=== PATIENT | male | born 1945 | race Caucasian/White ===

== ENCOUNTER 2016-05-22 11:16 | Inpatient (IN) | payer OTHER ==
[~2016-05-22] VITALS: Ht 167.6 cm; Wt 116.6 kg
[~2016-05-22 11:16] MED LIST: ADVAIR 500/501 DISK; AMBIEN10 MG; AMBIEN10 MG PO; AMLODIPINE BESY10 MG PO; AMLODIPINE BESYL5 MG PO; ASPIRIN325 MG PO; ATORVASTATIN CA10 MG PO; AVAPRO300 MG PO; AZELASTINE137 MCG/0. BOTH NARES; BUSPAR15 MG PO; CYANOCOBALAM1000 MCG PO; CYMBALTA60 MG PO; DEPO-TESTOS200 MG/ML IM; DULERA 100 MCG/13 GM IH; DULOXETINE HCL60 MG PO; EFFEXOR XR150 MG PO; FENOFIBRATE134 M1 PO; FENOFIBRATE160 M1 PO; FERROUS SULFAT325 MG PO; FISH OIL CONC1 EACH; FLOMAX0.4 MG PO; FLONASE16 G1 BOTH NARES; GEODON80 MG; GLIMEPIRIDE4 MG PO; HUMALOG100 UNIT/2 SC; HYDROCHLOROTHIA25 MG PO; IBUPROFEN200 M1 PO; INDERAL LA160 MG PO; K-DUR10 MEQ PO; KLONOPIN1 MG PO; KRILL OIL500 MG; LAMOTRIGINE200 M1 PO; LAMOTRIGINE200 MG; LAMOTRIGINE200 MG PO; LANTUS (UNITS)1 UNIT; LANTUS 3 M100 UNITS1 SC; LASIX40 MG PO; LISINOPRIL20 MG PO; LISINOPRIL40 MG PO; LO-DOSE ASPIRIN81 M2 PO; MELATONIN10 M1; MIRTAZAPINE30 MG PO; MIRTAZAPINE45 MG PO; NASONEX17 GM BOTH NARES; NIASPAN500 MG; OMEPRAZOLE20 M2 PO; PRILOSEC20 MG PO; PRINIVIL20 MG PO; PROPRANOLOL HC160 MG PO; PROVENTIL,2.5 MG/3 M IH; ROZEREM8 MG PO; SEROQUEL400 MG PO; SINGULAIR10 MG PO; SYNTHROID88 MCG PO; TESTONE CI200 MG/1 M IM; TESTOSTERO200 MG/12; TRADJENTA5 MG PO; TRAMADOL HCL50 MG PO; VALISONE TP; VENLAFAXINE HC150 M1 PO; VENLAFAXINE HCL75 MG PO; VENTOLIN HFA18 GM; VENTOLIN HFA18 GM IH; VERAPAMIL HCL240 M1
[2016-05-22 12:21] LABS: HEMATOCRIT 30.6 % (38.0-50.0); MCH 30.3 PG (29.0-34.0); MCV 89.2 FL (86-99); MEAN PLAT.VOLUME 9.2 uM^3 (9.0-12.4); PLATELET COUNT 304 K/uL (156-360); RBC DIS.WIDTH-CV 11.9 % (11.8-14.6); RBC DIS.WIDTH-SD 38.7 % (39-53); RED BLOOD COUNT 3.43 M/uL (4.00-5.50); WHITE BLOOD COUNT 13.6 K/uL (4.1-10.2)
[2016-05-22 12:29] LABS: CHLORIDE 103 mEq/L (99-109); POTASSIUM 4.9 mEq/L (3.7-5.4); SODIUM 135 mEq/L (136-147)
[2016-05-22 12:31] LABS: GLUCOSE 199 mg/dL (70-99)
[2016-05-22 12:32] LABS: ANION GAP 10 MEQ/L (2-14)
[2016-05-22 12:34] LABS: GFR ESTIMATE (CALCULATED) > 59 mL/min/
[2016-05-22 12:35] LABS: UREA NITROGEN (BUN) 24 mg/dL (9-23)
[2016-05-22] MEDS ORDERED: NORVASC10 MG PO (14:18)
[2016-05-22] MEDS ORDERED: BUSPAR15 MG PO (14:20)
[2016-05-22] MEDS ORDERED: [UNRECOGNIZED DRUG - OTHER] TP (14:20)
[2016-05-22] MEDS ORDERED: LAMICTAL25 MG PO (14:23)
[2016-05-22] MEDS ORDERED: REMERON30 M2 PO (14:24)
[2016-05-22 14:39] LABS: TROP-I INTERPRETATION NEGATIVE; TROPONIN-I < 0.01 ng/mL (0.0-0.30)
[2016-05-22 16:57] VITALS: BP 142/76
[2016-05-22 17:19] LABS: POINT-OF-CARE METER ID UU13113698
[2016-05-22 18:10] LABS: HEMATOCRIT 31.1 % (38.0-50.0); MCV 90.1 FL (86-99)
[2016-05-22 19:20] VITALS: BP 144/70
[2016-05-22 22:28] LABS: POINT-OF-CARE METER ID UU13113698
[2016-05-22 23:33] VITALS: BP 177/78
[2016-05-23 00:53] LABS: HEMATOCRIT 23.1 % (38.0-50.0); MCV 87.8 FL (86-99)
[2016-05-23 02:05] VITALS: BP 147/66
[2016-05-23 02:26] LABS: POINT-OF-CARE METER ID UU13113698
[2016-05-23 04:20] VITALS: BP 139/67
[2016-05-23 09:14] VITALS: BP 162/70
[2016-05-23 09:18] LABS: HEMATOCRIT 26.8 % (38.0-50.0); MCHC 33.6 G/DL (30.0-36.0); MCV 89.3 FL (86-99); RBC DIS.WIDTH-CV 12.5 % (11.8-14.6)
[2016-05-23 09:28] LABS: ANION GAP 7 MEQ/L (2-14); CHLORIDE 105 MEQ/L (99-109); GFR ESTIMATE (CALCULATED) > 59 mL/min/; SAMPLE HEMOLYSIS CHECK 0; SAMPLE ICTERIC CHECK 0; SAMPLE LIPEMIA CHECK 0; SODIUM 139 MEQ/L (136-147); UREA NITROGEN (BUN) 17 mg/dL (9-23)
[2016-05-23 09:38] LABS: WHITE BLOOD COUNT 8.6 K/uL (4.1-10.2)
[2016-05-23 09:41] LABS: GLUCOSE 92 mg/dL (70-99); POTASSIUM 3.7 MEQ/L (3.7-5.4)
[2016-05-23 09:49] LABS: MEAN PLAT.VOLUME 9.3 uM^3 (9.0-12.4); PLAT.SUFFICIENCY ADEQUATE
[2016-05-23 09:53] LABS: POINT-OF-CARE METER ID UU13113698
[2016-05-23 09:54] LABS: PLATELET COUNT 188 K/uL (156-360)
[2016-05-23 11:13] LABS: C DIFF TOXIN NEGATIVE (NEGATIVE)
[2016-05-23 11:14] LABS: HEMATOCRIT 27.6 % (38.0-50.0)
[2016-05-23 11:15] LABS: PROBE CHECK PASS; SPECIMEN PROCESSING CONTROL PASS
[2016-05-23 12:14] LABS: POINT-OF-CARE METER ID UU13113698; POINT-OF-CARE USER ID 606021404
[2016-05-23 12:28] VITALS: BP 151/68
[2016-05-23 16:27] LABS: HEMATOCRIT 27.9 % (38.0-50.0); MCV 87.7 FL (86-99)
[2016-05-23 16:30] VITALS: BP 162/72
[2016-05-23 17:03] LABS: POINT-OF-CARE METER ID UU13113698; POINT-OF-CARE USER ID 606021404
[2016-05-23 20:40] VITALS: BP 173/75
[2016-05-23 21:46] LABS: POINT-OF-CARE METER ID UU13113698
[2016-05-23 22:30] LABS: HEMATOCRIT 26.3 % (38.0-50.0); MCV 88.6 FL (86-99)
[2016-05-24 00:51] VITALS: BP 153/68
[2016-05-24 04:38] VITALS: BP 160/72
[2016-05-24 06:07] LABS: EOSINOPHIL (%) 3.3 % (0-5); EOSINOPHIL COUNT 0.2 K/uL (0-0.3); HEMATOCRIT 27.3 % (38.0-50.0); IMMATURE GRANULOCYTE (%) 0.4 % (0.0-0.7); INSTRUMENT ABS NEUTROPHIL CT 4.4 K/uL; LYMPHOCYTE COUNT 1.9 K/uL (1.0-2.8); MCH 30.5 PG (29.0-34.0); MCHC 34.1 G/DL (30.0-36.0); MCV 89.5 FL (86-99); MONOCYTE (%) 10.4 % (3-12); MONOCYTE COUNT 0.8 K/uL (0-0.8); NEUTROPHIL (%) 60.1 % (45-76); NEUTROPHIL COUNT 4.4 K/uL (1.8-6.4); PLATELET COUNT 204 K/uL (156-360); RBC DIS.WIDTH-CV 12.5 % (11.8-14.6); RBC DIS.WIDTH-SD 40.2 % (39-53); RED BLOOD COUNT 3.05 M/uL (4.00-5.50); WHITE BLOOD COUNT 7.4 K/uL (4.1-10.2)
[2016-05-24 06:39] LABS: ANION GAP 8 MEQ/L (2-14); CHLORIDE 106 MEQ/L (99-109); GFR ESTIMATE (CALCULATED) > 59 mL/min/; GLUCOSE 109 mg/dL (70-99); POTASSIUM 4.1 MEQ/L (3.7-5.4); SAMPLE HEMOLYSIS CHECK 0; SAMPLE ICTERIC CHECK 0; SAMPLE LIPEMIA CHECK 0; SODIUM 142 MEQ/L (136-147); UREA NITROGEN (BUN) 12 mg/dL (9-23)
[2016-05-24 07:46] VITALS: BP 162/72
[2016-05-24 08:21] LABS: POINT-OF-CARE METER ID UU13113698
[2016-05-24] MEDS ORDERED: PANTOPRAZOLE SO40 MG PO (10:23)
== END 2016-05-24 11:23 | disposition home or self-care (01) | DRG 378 ==
LOC: EME 11:16 → 4SOUTH 14:59 → EDOF 14:59 → 4SOUTH 16:50
PROVIDERS: Hospitalist; Internal Medicine; Internal Medicine Gastroenterology
PROC: 5A09357 Assistance with Respiratory Ventilation, Less than 24 Consecutive Hours, Continuous Positive Airway Pressure (ICD-10-PCS; principal; 2016-05-22)
PROC: 30233N1 Transfusion of Nonautologous Red Blood Cells into Peripheral Vein, Percutaneous Approach (ICD-10-PCS; 2016-05-23)
PROC: 0DB68ZX Excision of Stomach, Via Natural or Artificial Opening Endoscopic, Diagnostic (ICD-10-PCS; 2016-05-23)
DX: K26.4 Chronic or unspecified duodenal ulcer with hemorrhage (principal); D62 Acute posthemorrhagic anemia; Z68.41 Body mass index [BMI] 40.0-44.9, adult; K29.70 Gastritis, unspecified, without bleeding; K44.9 Diaphragmatic hernia without obstruction or gangrene; I10 Essential (primary) hypertension; E11.9 Type 2 diabetes mellitus without complications; E78.5 Hyperlipidemia, unspecified; G47.33 Obstructive sleep apnea (adult) (pediatric); J45.909 Unspecified asthma, uncomplicated; K21.9 Gastro-esophageal reflux disease without esophagitis; F31.9 Bipolar disorder, unspecified; E66.01 Morbid (severe) obesity due to excess calories; Z95.810 Presence of automatic (implantable) cardiac defibrillator; Z85.09 Personal history of malignant neoplasm of other digestive organs; Z79.82 Long term (current) use of aspirin; Z79.4 Long term (current) use of insulin
CPT/HCPCS: 74177; 80048; 82948; 84484; 85014; 85018; 85025; 85027; 86850; 86900; 86901; 86920; 87077; 87493; 88305; 88342 TC; 93005; 94640; 94640 76; 94660; 99202; 99281; 99284; C9113; J1815; J1940; J7030; P9040

== ENCOUNTER → 2016-11-29 | Outpatient (CLI) | payer OTHER ==
[~2016-11-29] MED LIST changes: +LAMICTAL25 MG PO; +NORVASC10 MG PO; +PANTOPRAZOLE SO40 MG PO; +REMERON30 M2 PO; +[UNRECOGNIZED DRUG - OTHER] TP
== END | disposition home or self-care (01) ==
DX: R26.2 Difficulty in walking, not elsewhere classified (principal); M25.562 Pain in left knee; M25.561 Pain in right knee; M25.662 Stiffness of left knee, not elsewhere classified; M25.661 Stiffness of right knee, not elsewhere classified; M17.0 Bilateral primary osteoarthritis of knee; M62.81 Muscle weakness (generalized); Z74.1 Need for assistance with personal care
CPT/HCPCS: 97161 GP; 97165 GO; 97530 GP; 97537 GO; G8978 GP; G8979 GP; G8980 GP; G8987 GO; G8988 GO; G8989 GO

== ENCOUNTER 2016-12-29 09:04 | Inpatient (IN) | payer OTHER ==
[~2016-12-29] VITALS: Ht 167.6 cm; Wt 122.5 kg
[~2016-12-29 09:04] MED LIST changes: +ASCORBIC ACID100 MG PO; +ELIQUIS2.5 MG PO; +ENDOCET 5-3251 EACH PO; +LORTAB 5-325 M1 EACH PO; +OXYCONTIN10 MG PO; +PROTONIX40 MG PO; +SODIUM CHLORIDE1 G1 PO; +TENORMIN50 MG PO; +VALERIAN ROOT PO; +VITAMIN D31000 UNIT PO; +ZESTRIL40 MG PO
[2016-12-29] MEDS ORDERED: ZOFRAN4 MG PO (16:35)
[2016-12-29] MEDS ORDERED: SENNA S TABLET1 EACH PO (16:37)
[2016-12-29] MEDS ORDERED: PRAVACHOL40 MG PO (16:38)
[2016-12-29] MEDS ORDERED: CELEBREX200 MG PO (16:39)
[2016-12-29] MEDS ORDERED: PERCOCET 5/31 TABLET PO (16:41)
[2016-12-29 19:54] VITALS: BP 161/67
[2016-12-29 21:23] LABS: POINT-OF-CARE METER ID UU14174215
[2016-12-30 05:32] VITALS: BP 116/56
[2016-12-30 05:32] LABS: HEMATOCRIT 23.3 % (38.0-50.0); MCH 30.7 PG (29.0-34.0); MCHC 34.3 G/DL (30.0-36.0); MCV 89.3 FL (86-99); MEAN PLAT.VOLUME 9.2 uM^3 (9.0-12.4); RBC DIS.WIDTH-CV 12.2 % (11.8-14.6); RBC DIS.WIDTH-SD 39.8 % (39-53); WHITE BLOOD COUNT 10.2 K/uL (4.1-10.2)
[2016-12-30 06:08] LABS: PLATELET COUNT 146 K/uL (156-360); RED BLOOD COUNT 2.61 M/uL (4.00-5.50)
[2016-12-30 06:39] LABS: ALKALINE PHOSPHATASE 47 IU/L (3-129); CHLORIDE 95 MEQ/L (99-109); GFR ESTIMATE (CALCULATED) > 59 mL/min/; POTASSIUM 3.8 MEQ/L (3.7-5.4); SAMPLE HEMOLYSIS CHECK 0; SAMPLE ICTERIC CHECK 0; SODIUM 130 MEQ/L (136-147); TOTAL BILIRUBIN 0.7 MG/DL (0.0-1.0); UREA NITROGEN (BUN) 16 mg/dL (9-23)
[2016-12-30 06:40] LABS: ANION GAP 7 MEQ/L (2-14); GLUCOSE 87 mg/dL (70-99); SAMPLE LIPEMIA CHECK 0
[2016-12-30 07:09] LABS: POINT-OF-CARE METER ID UU14174215; POINT-OF-CARE USER ID ENVGAF
[2016-12-30 11:39] LABS: POINT-OF-CARE METER ID UU14174215; POINT-OF-CARE USER ID ENVGAF
[2016-12-30 15:24] VITALS: BP 131/58
[2016-12-30 16:19] LABS: POINT-OF-CARE METER ID UU14174215; POINT-OF-CARE USER ID ENVGAF
[2016-12-30 20:59] LABS: POINT-OF-CARE METER ID UU13113720
[2016-12-31 05:00] VITALS: BP 129/62
[2016-12-31 07:02] LABS: HEMATOCRIT 23.7 % (38.0-50.0); MCH 30.9 PG (29.0-34.0); MCHC 34.2 G/DL (30.0-36.0); MCV 90.5 FL (86-99); MEAN PLAT.VOLUME 9.3 uM^3 (9.0-12.4); PLATELET COUNT 181 K/uL (156-360); RBC DIS.WIDTH-CV 12.4 % (11.8-14.6); RBC DIS.WIDTH-SD 40.3 % (39-53); RED BLOOD COUNT 2.62 M/uL (4.00-5.50); WHITE BLOOD COUNT 9.2 K/uL (4.1-10.2)
[2016-12-31 07:36] LABS: ANION GAP 8 MEQ/L (2-14); CHLORIDE 96 MEQ/L (99-109); GFR ESTIMATE (CALCULATED) > 59 mL/min/; GLUCOSE 88 mg/dL (70-99); POTASSIUM 4.5 MEQ/L (3.7-5.4); SAMPLE HEMOLYSIS CHECK 0; SAMPLE ICTERIC CHECK 0; SAMPLE LIPEMIA CHECK 0; SODIUM 133 MEQ/L (136-147); UREA NITROGEN (BUN) 15 mg/dL (9-23)
[2016-12-31 07:57] LABS: POINT-OF-CARE METER ID UU14174215; POINT-OF-CARE USER ID AHSSSJB31
[2016-12-31 11:50] LABS: POINT-OF-CARE METER ID UU13113720; POINT-OF-CARE USER ID AHSSSJB31
[2016-12-31 15:37] VITALS: BP 141/64
[2016-12-31 16:27] LABS: POINT-OF-CARE METER ID UU14174215; POINT-OF-CARE USER ID 610211320
[2016-12-31 21:29] LABS: POINT-OF-CARE METER ID UU14174215
[2017-01-01 05:51] LABS: HEMATOCRIT 23.3 % (38.0-50.0); MCH 30.4 PG (29.0-34.0); MCHC 33.9 G/DL (30.0-36.0); MCV 89.6 FL (86-99); NRBC (%) 0.2 /100 WBC (0-0); PLATELET COUNT 217 K/uL (156-360); RBC DIS.WIDTH-CV 12.8 % (11.8-14.6); RBC DIS.WIDTH-SD 41.3 % (39-53); WHITE BLOOD COUNT 8.8 K/uL (4.1-10.2)
[2017-01-01 05:58] VITALS: BP 136/63
[2017-01-01 06:56] LABS: ANION GAP 9 MEQ/L (2-14); CHLORIDE 97 MEQ/L (99-109); GFR ESTIMATE (CALCULATED) > 59 mL/min/; GLUCOSE 107 mg/dL (70-99); POTASSIUM 4.5 MEQ/L (3.7-5.4); SAMPLE HEMOLYSIS CHECK 0; SAMPLE ICTERIC CHECK 0; SAMPLE LIPEMIA CHECK 0; SODIUM 135 MEQ/L (136-147); UREA NITROGEN (BUN) 15 mg/dL (9-23)
[2017-01-01 07:30] LABS: POINT-OF-CARE METER ID UU13113720; POINT-OF-CARE USER ID AHSSSJB31
[2017-01-01 11:37] LABS: POINT-OF-CARE METER ID UU13113720; POINT-OF-CARE USER ID AHSSSJB31
[2017-01-01 15:37] LABS: POINT-OF-CARE METER ID UU13113720; POINT-OF-CARE USER ID 610211320
[2017-01-01 15:49] VITALS: BP 132/60
[2017-01-01 21:04] LABS: POINT-OF-CARE METER ID UU13113720; POINT-OF-CARE USER ID 610211320
[2017-01-02 05:26] VITALS: BP 109/52
[2017-01-02 05:52] LABS: HEMATOCRIT 24.1 % (38.0-50.0); MCH 29.9 PG (29.0-34.0); MCHC 32.8 G/DL (30.0-36.0); MCV 91.3 FL (86-99); MEAN PLAT.VOLUME 8.8 uM^3 (9.0-12.4); NRBC (%) 0.3 /100 WBC (0-0); PLATELET COUNT 246 K/uL (156-360); RBC DIS.WIDTH-CV 12.9 % (11.8-14.6); RBC DIS.WIDTH-SD 41.7 % (39-53); RED BLOOD COUNT 2.64 M/uL (4.00-5.50); WHITE BLOOD COUNT 9.7 K/uL (4.1-10.2)
[2017-01-02 06:21] LABS: ANION GAP 9 MEQ/L (2-14); CHLORIDE 99 MEQ/L (99-109); GFR ESTIMATE (CALCULATED) > 59 mL/min/; GLUCOSE 98 mg/dL (70-99); POTASSIUM 4.1 MEQ/L (3.7-5.4); SAMPLE HEMOLYSIS CHECK 0; SAMPLE ICTERIC CHECK 0; SAMPLE LIPEMIA CHECK 0; SODIUM 135 MEQ/L (136-147); UREA NITROGEN (BUN) 16 mg/dL (9-23)
[2017-01-02 07:32] LABS: POINT-OF-CARE METER ID UU13113720; POINT-OF-CARE USER ID AHSSSJB31
[2017-01-02 11:47] LABS: POINT-OF-CARE METER ID UU13113720; POINT-OF-CARE USER ID AHSSSJB31
[2017-01-02 14:37] VITALS: BP 139/62
[2017-01-02 14:50] VITALS: BP 164/73
[2017-01-02 15:45] VITALS: BP 141/61
[2017-01-02 16:24] LABS: POINT-OF-CARE METER ID UU13113720
[2017-01-02 16:45] VITALS: BP 148/65
[2017-01-02 17:40] VITALS: BP 163/69
[2017-01-02 21:07] LABS: POINT-OF-CARE METER ID UU13113720
[2017-01-02] MEDS ORDERED: SODIUM CHLORIDE1 G1 PO (21:32)
[2017-01-02] MEDS ORDERED: Salonpas 4% Patch TD (21:32)
[2017-01-02] MEDS ORDERED: POLYETHYLENE GL17 GM PO (21:32)
[2017-01-02] MEDS ORDERED: FERROUS SULFAT325 MG PO (21:32)
[2017-01-03 05:49] VITALS: BP 139/66
[2017-01-03 06:31] LABS: HEMATOCRIT 27.4 % (38.0-50.0); MCH 29.5 PG (29.0-34.0); MCHC 32.5 G/DL (30.0-36.0); MCV 90.7 FL (86-99); MEAN PLAT.VOLUME 8.6 uM^3 (9.0-12.4); NRBC (%) 0.3 /100 WBC (0-0); PLATELET COUNT 270 K/uL (156-360); RBC DIS.WIDTH-CV 13.2 % (11.8-14.6); RBC DIS.WIDTH-SD 42.3 % (39-53); RED BLOOD COUNT 3.02 M/uL (4.00-5.50); WHITE BLOOD COUNT 10.8 K/uL (4.1-10.2)
[2017-01-03 07:02] LABS: ANION GAP 7 MEQ/L (2-14); CHLORIDE 100 MEQ/L (99-109); GFR ESTIMATE (CALCULATED) > 59 mL/min/; GLUCOSE 90 mg/dL (70-99); POTASSIUM 4.6 MEQ/L (3.7-5.4); SAMPLE HEMOLYSIS CHECK 0; SAMPLE ICTERIC CHECK 0; SAMPLE LIPEMIA CHECK 0; SODIUM 136 MEQ/L (136-147); UREA NITROGEN (BUN) 15 mg/dL (9-23)
[2017-01-03 07:07] LABS: POINT-OF-CARE METER ID UU14174215; POINT-OF-CARE USER ID ENVGAF
[2017-01-03 11:40] LABS: POINT-OF-CARE METER ID UU14174215; POINT-OF-CARE USER ID AHSSSJB31
[2017-01-03 12:19] LABS: POINT-OF-CARE METER ID UU14174215; POINT-OF-CARE USER ID ENVGAF
[2017-01-03] MEDS ORDERED: ZOFRAN ODT4 MG PO (13:14)
== END 2017-01-03 14:14 | disposition home health service (06) | DRG 560 ==
LOC: 3WEST 09:04
PROVIDERS: Internal Medicine Nephrology; Physical Medicine & Rehabilitation Pain Medicine
PROC: F07M0ZZ Range of Motion and Joint Mobility Treatment of Musculoskeletal System - Whole Body (ICD-10-PCS; principal; 2016-12-29)
DX: Z47.1 Aftercare following joint replacement surgery (principal); M62.81 Muscle weakness (generalized); Z96.653 Presence of artificial knee joint, bilateral; D62 Acute posthemorrhagic anemia; E78.00 Pure hypercholesterolemia, unspecified; J45.909 Unspecified asthma, uncomplicated; M06.9 Rheumatoid arthritis, unspecified; G47.33 Obstructive sleep apnea (adult) (pediatric); D72.829 Elevated white blood cell count, unspecified; E11.9 Type 2 diabetes mellitus without complications; E87.1 Hypo-osmolality and hyponatremia; I10 Essential (primary) hypertension; M79.7 Fibromyalgia; N40.0 Benign prostatic hyperplasia without lower urinary tract symptoms; G89.18 Other acute postprocedural pain; Z90.49 Acquired absence of other specified parts of digestive tract; Z82.5 Family history of asthma and other chronic lower respiratory diseases; Z82.61 Family history of arthritis; Z82.49 Family history of ischemic heart disease and other diseases of the circulatory system; Z85.038 Personal history of other malignant neoplasm of large intestine; Z87.11 Personal history of peptic ulcer disease; Z95.810 Presence of automatic (implantable) cardiac defibrillator
CPT/HCPCS: 80053; 80069; 82948; 83935; 84300; 84443; 85027; 86850; 86900; 86901; 86920; 97110 GO; 97530 GP; J1815; P9016

== ENCOUNTER 2017-06-22 07:25 | Day surgery (SDC) | payer OTHER ==
[~2017-06-22] VITALS: Ht 167.6 cm; Wt 121.1 kg
[~2017-06-22 07:25] MED LIST changes: +CELEBREX200 MG PO; +ENDOCET 10-3251 EACH PO; +LAMICTAL200 MG PO; +NEURONTIN300 MG PO; +OMEPRAZOLE40 M1 PO; +PERCOCET 5/31 TABLET PO; +POLYETHYLENE GL17 GM PO; +PRAVACHOL40 MG PO; +QUESTRAN LIGHT210 GM PO; +SENNA S TABLET1 EACH PO; +SEROQUEL300 MG PO; +Salonpas 4% Patch TD; +ZOFRAN ODT4 MG PO; +ZOFRAN4 MG PO
== END 2017-06-22 09:20 | disposition home or self-care (01) ==
LOC: PAIN 07:25 → SDC 08:00 → PAIN 08:00
PROVIDERS: Anesthesiology Pain Medicine
DX: M47.812 Spondylosis without myelopathy or radiculopathy, cervical region (principal); M47.816 Spondylosis without myelopathy or radiculopathy, lumbar region; E11.40 Type 2 diabetes mellitus with diabetic neuropathy, unspecified; I11.0 Hypertensive heart disease with heart failure; I50.30 Unspecified diastolic (congestive) heart failure; K21.9 Gastro-esophageal reflux disease without esophagitis; E78.5 Hyperlipidemia, unspecified; E66.01 Morbid (severe) obesity due to excess calories; Z68.41 Body mass index [BMI] 40.0-44.9, adult; G47.30 Sleep apnea, unspecified; E03.9 Hypothyroidism, unspecified; Z79.82 Long term (current) use of aspirin; Z79.4 Long term (current) use of insulin; Z79.891 Long term (current) use of opiate analgesic; Z95.810 Presence of automatic (implantable) cardiac defibrillator
CPT/HCPCS: 82948; J1030; J2250; S0020

== ENCOUNTER 2017-07-06 07:21 | Day surgery (SDC) | payer OTHER ==
[~2017-07-06] VITALS: Ht 167.6 cm; Wt 122.0 kg
== END 2017-07-06 09:22 | disposition home or self-care (01) ==
LOC: PAIN 07:21 → SDC 08:15 → PAIN 08:15
PROVIDERS: Anesthesiology Pain Medicine
DX: M47.812 Spondylosis without myelopathy or radiculopathy, cervical region (principal); F31.64 Bipolar disorder, current episode mixed, severe, with psychotic features; M19.90 Unspecified osteoarthritis, unspecified site; E11.40 Type 2 diabetes mellitus with diabetic neuropathy, unspecified; I11.0 Hypertensive heart disease with heart failure; I50.30 Unspecified diastolic (congestive) heart failure; I25.10 Atherosclerotic heart disease of native coronary artery without angina pectoris; E66.01 Morbid (severe) obesity due to excess calories; Z68.42 Body mass index [BMI] 45.0-49.9, adult; Z79.4 Long term (current) use of insulin; Z91.048 Other nonmedicinal substance allergy status
CPT/HCPCS: 82948; J1030; J2250; S0020

== ENCOUNTER 2017-09-04 07:55 | Day surgery (SDC) | payer OTHER ==
[~2017-09-04] VITALS: Ht 167.6 cm; Wt 122.0 kg
[2017-09-04] MEDS ORDERED: CYMBALTA60 MG PO (08:12)
== END 2017-09-04 09:50 | disposition home or self-care (01) ==
LOC: PAIN 07:55 → SDC 08:30 → PAIN 09:50
PROVIDERS: Anesthesiology Pain Medicine
PROC: BR141ZZ Fluoroscopy of Cervical Facet Joint(s) using Low Osmolar Contrast (ICD-10-PCS; principal; 2017-09-04)
PROC: 3E0T3TZ Introduction of Destructive Agent into Peripheral Nerves and Plexi, Percutaneous Approach (ICD-10-PCS; principal; 2017-09-04)
DX: M47.812 Spondylosis without myelopathy or radiculopathy, cervical region (principal); M50.30 Other cervical disc degeneration, unspecified cervical region; I11.0 Hypertensive heart disease with heart failure; I50.30 Unspecified diastolic (congestive) heart failure; G47.30 Sleep apnea, unspecified; Z95.810 Presence of automatic (implantable) cardiac defibrillator; I25.10 Atherosclerotic heart disease of native coronary artery without angina pectoris; E11.65 Type 2 diabetes mellitus with hyperglycemia
CPT/HCPCS: 82948; J1030; J2250; S0020

== ENCOUNTER 2017-09-12 07:47 | Day surgery (SDC) | payer OTHER ==
[~2017-09-12] VITALS: Ht 167.6 cm; Wt 129.3 kg
== END 2017-09-12 10:05 | disposition home or self-care (01) ==
LOC: PAIN 07:47 → SDC 08:30 → PAIN 08:30
PROVIDERS: Anesthesiology Pain Medicine
DX: M47.812 Spondylosis without myelopathy or radiculopathy, cervical region (principal); M50.31 Other cervical disc degeneration, high cervical region; I10 Essential (primary) hypertension; E78.5 Hyperlipidemia, unspecified; M79.7 Fibromyalgia; E11.9 Type 2 diabetes mellitus without complications; M47.816 Spondylosis without myelopathy or radiculopathy, lumbar region; J45.909 Unspecified asthma, uncomplicated; K21.9 Gastro-esophageal reflux disease without esophagitis; G47.33 Obstructive sleep apnea (adult) (pediatric); Z95.810 Presence of automatic (implantable) cardiac defibrillator; Z85.038 Personal history of other malignant neoplasm of large intestine; Z79.4 Long term (current) use of insulin; Z79.891 Long term (current) use of opiate analgesic; Z91.040 Latex allergy status
CPT/HCPCS: 82948; J1030; J2250; J3010; S0020